=== PATIENT | male | born 1985 | race Caucasian/White ===

== ENCOUNTER 2023-05-09 17:24 | Outpatient (CLI) | payer OTHER, SELFPAY | END 2023-05-09 17:25 | disposition home or self-care (01) | LOC: NFLDREF 05-10 18:02 | PROVIDERS: PCP Physician Assistant Medical; Referring Provider Physician Assistant Medical; Visit Provider Physician Assistant Medical | DX: Z00.00 Encounter for general adult medical examination without abnormal findings (principal); E78.5 Hyperlipidemia, unspecified; I10 Essential (primary) hypertension | CPT/HCPCS: 80053; 80061; 84443 ==

== ENCOUNTER 2024-07-16 16:21 | Outpatient (CLI) | payer OTHER, SELFPAY | END 2024-07-16 16:22 | disposition home or self-care (01) | PROVIDERS: PCP Physician Assistant Medical; Visit Provider Physician Assistant Medical | DX: Z00.00 Encounter for general adult medical examination without abnormal findings (principal); E78.5 Hyperlipidemia, unspecified; I10 Essential (primary) hypertension; Z13.0 Encounter for screening for diseases of the blood and blood-forming organs and certain disorders involving the immune mechanism | CPT/HCPCS: 80053; 80061; 84443 ==

== ENCOUNTER 2025-09-27 13:40 | Outpatient (CLI) | payer OTHER, SELFPAY | END 2025-09-27 13:41 | disposition home or self-care (01) | LOC: NFLDREF 10-02 21:54 | PROVIDERS: PCP Physician Assistant Medical; Referring Provider Physician Assistant Medical; Visit Provider Physician Assistant Medical | DX: Z00.00 Encounter for general adult medical examination without abnormal findings (principal); I10 Essential (primary) hypertension | CPT/HCPCS: 80048; 80061; 84443 ==